=== PATIENT | female | born 1965 | race African-American/Black ===

== ENCOUNTER 2017-04-01 23:37 | Emergency (ER) | payer MEDICAID ==
[~2017-04-01] VITALS: Ht 157.5 cm; Wt 93.0 kg
[2017-04-02] MEDS ORDERED: KETOROLAC 60MG/2ML VIAL IM ONE (00:30)
[2017-04-02] MEDS ORDERED: CYCLOBENZAPRINE 10MG TABLET PO ONE (00:30)
[2017-04-02 00:55] LABS: CLARITY URINE CLEAR (CLEAR); COLOR URINE YELLOW (YELLOW); GLUCOSE URINE NEGATIVE (NEGATIVE); KETONES URINE NEGATIVE (NEGATIVE); LEUKOCYTE ESTERASE URINE TRACE (NEGATIVE); NITRITE URINE NEGATIVE (NEGATIVE); OCCULT BLOOD URINE NEGATIVE (NEGATIVE); PROTEIN URINE NEGATIVE (NEGATIVE); UROBILINOGEN URINE 0.2 E.U./dL (0.2-1.0)
[2017-04-02 01:30] VITALS: BP 126/74
== END 2017-04-02 02:29 | disposition home or self-care (01) ==
LOC: ER 23:37
DX: N10 Acute pyelonephritis (principal); M54.9 Dorsalgia, unspecified; J45.909 Unspecified asthma, uncomplicated; R56.9 Unspecified convulsions; Z88.5 Allergy status to narcotic agent
CPT/HCPCS: 81001; 96372; 99283; J1885; Z7610

== ENCOUNTER 2018-03-24 14:08 | Emergency (ER) | payer MEDICAID ==
[~2018-03-24] VITALS: Ht 160 cm; Wt 91.0 kg
[2018-03-24] MEDS ORDERED: KETOROLAC 60MG/2ML VIAL IM ONE (21:00)
[2018-03-24 22:17] VITALS: BP 130/68
== END 2018-03-24 22:18 | disposition home or self-care (01) ==
LOC: ER 16:13
DX: M25.511 Pain in right shoulder (principal); R60.0 Localized edema; R51 Headache; J45.909 Unspecified asthma, uncomplicated; Z88.5 Allergy status to narcotic agent
CPT/HCPCS: 73000; 96372; 99284; J1885

== ENCOUNTER 2019-08-13 22:17 | Emergency (ER) | payer MEDICAID ==
[~2019-08-13] VITALS: Ht 162.6 cm; Wt 91.0 kg
[2019-08-13] MEDS ORDERED: KETOROLAC 60MG/2ML VIAL IM ONE (23:30)
[2019-08-14 00:12] VITALS: BP 142/77
== END 2019-08-14 00:13 | disposition home or self-care (01) ==
LOC: ER 22:17
DX: M54.42 Lumbago with sciatica, left side (principal); J45.909 Unspecified asthma, uncomplicated
CPT/HCPCS: 96372; 99283; J1885